=== PATIENT | female | born 1940 | race Caucasian/White ===

== ENCOUNTER 2018-12-25 06:27 | Day surgery (SDC) | payer OTHER ==
[~2018-12-25] VITALS: Ht 157.5 cm; Wt 78.9 kg
[~2018-12-25 06:27] MED LIST: CLOP75TA41 PO; LEVO112T4 PO; LOSA25TA38 PO; PANT40T PO
[2018-12-25] MEDS ORDERED: LIDOCAINE 2%HCL (LOCAL ANESTH.) INJ 20ML MDV ONE (07:27)
[2018-12-25] MEDS ORDERED: IODIXANOL 320MG/ML 100ML BTL IV ONE ×2 (07:27→08:10)
[2018-12-25] MEDS ORDERED: ANGIOMAX 250 MG VIAL IV ONE (07:42)
[2018-12-25] MEDS ORDERED: MIDAZOLAM HCL 1MG/1ML-2 ML VIAL ONE (07:43)
[2018-12-25] MEDS ORDERED: fentaNYL CITRATE 100 MCG/2 ML VL ONE (07:43)
[2018-12-25] MEDS ORDERED: SODIUM CHL 0.9% 0 ML ONE (07:43)
[2018-12-25] MEDS ORDERED: VERAPAMIL 2.5MG/ML INJ 2ML VIAL IV ONE (07:58)
[2018-12-25] MEDS ORDERED: HEPARIN SODIUM (PORCINE) 5000 UNITS/ML 1ML VIAL ONE (08:32)
[2018-12-25] MEDS ORDERED: ACETAMINOPHEN 500 MG TAB PO ONE (09:45)
== END 2018-12-25 11:20 | disposition home or self-care (01) ==
LOC: CATH 06:27
PROVIDERS: ATTEND Internal Medicine
DX: I25.10 Atherosclerotic heart disease of native coronary artery without angina pectoris (principal); I10 Essential (primary) hypertension; E78.5 Hyperlipidemia, unspecified; E78.00 Pure hypercholesterolemia, unspecified; Z87.891 Personal history of nicotine dependence; Z79.899 Other long term (current) drug therapy; Z95.818 Presence of other cardiac implants and grafts; Z88.8 Allergy status to other drugs, medicaments and biological substances; Z88.0 Allergy status to penicillin; Z98.84 Bariatric surgery status; Z88.2 Allergy status to sulfonamides; Z98.890 Other specified postprocedural states
CPT/HCPCS: 93454; 93571; C1769; C1894; J1644; J2250; J3010; J7030; Q9967; 99152

== ENCOUNTER 2024-11-06 14:13 | Inpatient (IN) | payer OTHER ==
[~2024-11-06] VITALS: Ht 157.5 cm; Wt 81.0 kg
[~2024-11-06 14:13] MED LIST changes: -CLOP75TA41 PO; +CLOP75TA70 PO; +LOSA-533 PO; -LOSA25TA38 PO
--- NOTE | 2024-11-06 15:10 | ED.PDOC ---
GI ASSESSMENT HPI Comments 84 y/o F, brought in by daughter, with PMHx of UTI, AFib, DM, and cancer presents to the ED for CC of diarrhea. Patient's daughter reports, patient has been having diarrhea [id number]. Patient's daughter endorses, patient was recently treated for a UTI on Monday (11/04/24) and is currently on Abx. Patient's daughter relays, patient has displayed increased disorientation since, beginning of symptoms. Patient denies nausea, vomiting, fever, or chills. No other symptoms or modifying factors present at this time. Chief Complaint: Diarrhea Time Seen by MD: 15:00 Reviewed Notes: Nurses Notes, Medications, Allergies Allergies: Coded Allergies: Cephalexin (Verified Allergy, Unknown, 12/21/18) Penicillins (Verified Allergy, Unknown, 12/21/18) Sulfa Antibiotics (Verified Allergy, Unknown, 12/21/18) Home Meds Reported Medications Levothyroxine Sodium (Levothyroxine Sodium) 112 Mcg Tab, 112 MCG PO QAM for 30 Days, MCG 12/21/18 Pantoprazole Sodium Sesquihydr (Pantoprazole Sodium) 40 Mg Tab, 40 MG PO DAILY, TAB 12/21/18 Losartan Potassium (Losartan Potassium) 25 Mg Tab, 25 MG PO DAILY for 30 Days, MG 12/21/18 Clopidogrel Bisulfate (CLOPIDOGREL) 75 Mg Tab, 75 MG PO MWF for 30 Days, MG 12/21/18 Information Source: Patient Mode of Arrival: Wheelchair Timing: Weeks Duration: Since onset Prehospital treatment: None Quality: None Vomitus: None Stool: Watery Severity: Moderate Recent: Antibiotics Recent Hx of: None Pain Location: None Modifying Factors: Nothing Associated sign and symptoms: Diarrhea Past Medical History PAST MEDICAL HISTORY: AFIB, Cancer, DM, Thyroid Surgical History: Hysterectomy Surgical History (Other): cataracts VALUE STREAM LEADER History: Denies all VALUE STREAM LEADER Hx Family History Family History: Unknown Social History Smoker: Non-Smoker Alcohol: Denies ETOH Use Drugs: Denies Drug Use Lives In: Home Constitutional: denies: chills, diaphoresis, fatigue, fever, malaise, sweats, weakness, others EENTM: denies: blurred vision, double vision, ear bleeding, ear discharge, ear drainage, ear pain, ear ringing, eye pain, eye redness, hearing loss, mouth pain, mouth swelling, nasal discharge, nose bleeding, nose congestion, nose pa in, photophobia, tearing, throat pain, throat swelling, voice changes, others Respiratory: denies: cough, hemoptysis, orthopnea, SOB at rest, shortness of breath, SOB with excertion, stridor, wheezing, others Cardiovascular: denies: chest pain, dizzy spells, diaphoresis, Dyspnea on exertion, edema, irregular heart beat, left arm pain, lightheadedness, palpitations, PND, syncope, others Gastrointestinal: reports: diarrhea; denies: abdomen distended, abdominal pain, blood streaked bowels, constipated, dysphagia, difficulty swallowing, hematemesis, melena, nausea, poor appetite, poor fluid intake, rectal bleeding, rectal pain, vomiting, others Genitourinary: denies: abnormal vagina bleeding, burning, dyspareunia, dysuria, flank pain, frequency, hematuria, incontinence, pain, , vagina discharge, urgency, others Neurological: denies: dizziness, fainting, headache, left sided numbness, left sided weakness, numbness, paresthesia, pre-existing deficit, right sided numbness, right sided weakness, seizure, speech problems, tingling, tremors, weakness, others Musculoskeletal: denies: back pain, gout, joint pain, joint swelling, muscle pain, muscle stiffness, neck pain, others Integumetry: denies: bruises, change in color, change in hair/nails, dryness, laceration, lesions, lumps, rash, wounds, others Allergic/Immunocompromised: denies: Difficulty Healing, Frequent Infections, Hives, Itching, others Hematologic/Lymphatic: denies: anemia, blood clots, easy bleeding, easy bruising, swollen glands, others Endocrine: denies: excessive hunger, excessive sweating, excessive thirst, excessive urination, flushing, intolerance to cold, intolerance to heat, unexpla ined weight gain, unexplained weight loss, others Psychiatric: denies: anxiety, bipolar disorder, depression, hopeless, panic disorder, schizophrenia, sleepless, suicidal, others All Other Systems: Reviewed and Negative Physical Exam General Appearance: Moderate Distress HEENT: Normal ENT Inspection, Pharynx Normal, TMs Normal Neck: Full Range of Motion, Non-Tender, Normal, Normal Inspection Respiratory: Chest Non-Tender, Lungs Clear, No Accessory Muscle Use, No Respiratory Distress, Normal Breath Sounds Cardiovascular: No Edema, No JVD, No Murmur, No Gallop, Normal Peripheral Pulses, Regular Rate/Rhythm Breast Exam: Deferred Gastrointestinal: No Organomegaly, No Pulsatile Mass, Normal Bowel Sounds, Soft, Suprapubic, Tenderness Genitalia: Deferred Pelvic: Deferred Rectal: Deferred Extremities: No calf tenderness, Normal capillary refill, No pedal edema Musculoskeletal : Apperance: Normal Neurologic: correctional officer sergeant II-XII nml as Tested, Motor Weakness, Normal Affect, No Sensory Deficits, Other (Confusion) Cerebellar Function: Normal Reflexes: Normal Skin: Dry, Pallor, Warm Lymphatic: No Adenopathy EKG EKG : Pulse Rate (adult): 71 [place]: Normal Cardiac Rhythm: NSR Block: None Hypertrophy: LVH ST: Normal Was a procedure done? Was a procedure done?: No GI differential Dx Differential Diagnosis: Gastritis/PUD, Gastroenteritis, UTI, Electrolyte Imbalance, Food Poisoning, Bacterial, Viral X-Ray, Labs, Meds, VS Vital Signs Date Time Temp Pulse Resp B/P (MAP) Pulse Ox O2 Delivery O2 Flow Rate FiO2 11/06/24 16:03 70 15 98 Room Air* 0 21 11/06/24 16:00 67 13 128/77 (94) 99 11/06/24 15:30 98.1 70 15 143/59 (87) 98 98.1 11/06/24 15:10 71 11/06/24 15:07 71 11/06/24 14:13 99.6 78 20 116/60 (78) 95 99.6 Lab Test 11/06/24 15:38 11/06/24 15:18 11/06/24 15:04 11/06/24 14:57 Range/Units POC Glucose 118 H 111 H 70-106 mg/dl White Blood Count 6.9 4.4-10.8 10^3/uL Red Blood Count 4.35 4.0-5.20 10^6/uL Hemoglobin 13.0 12.2-16.2 g/dL Hematocrit 38.1 36.0-46.0 % Mean Corpuscular Volume 87.5 80.0-100.0 fL Mean Corpuscular Hemoglobin 29.9 28.0-32.0 pg Mean Corpuscular Hemoglobin Concent 34.2 32.0-36.0 g/dL Red Cell Distribution Width 13.4 11.8-14.3 % Platelet Count 274 140-450 10^3/uL Mean Platelet Volume 6.9 6.9-10.8 fL Neutrophils (%) (Auto) 77.9 37.0-80.0 % Lymphocytes (%) (Auto) 8.1 L 10.0-50.0 % Monocytes (%) (Auto) 12.8 H 0.0-12.0 % Eosinophils (%) (Auto) 0.6 0.0-7.0 % Basophils (%) (Auto) 0.6 0.0-2.0 % Neutrophils # (Auto) 5.4 1.6-8.6 10 ^3/uL Lymphocytes # (Auto) 0.6 0.4-5.4 10 ^3/uL Monocytes # (Auto) 0.9 0-1.3 10 ^3/uL Eosinophils # (Auto) 0 0-0.8 10 ^3/uL Basophils # (Auto) 0 0-0.2 10 ^3/uL Nucleated Red Blood Cells 0.0 % Sodium Level 136 136-145 mmol/L Potassium Level 4.0 3.5-5.1 mmol/L Chloride Level 106 98-107 mmol/L Carbon Dioxide Level 22 20-31 mmol/L Anion Gap 8 5-15 Blood Urea Nitrogen 18 9-23 mg/dL Creatinine 1.21 H 0.550-1.02 mg/dL Glomerular Filtration Rate Calc 45 >90 mL/min BUN/Creatinine Ratio 14.9 10.0-20.0 Serum Glucose 108 H 74-106 mg/dL Lactic Acid Level 1.1 0.4-2.0 mmol/L Calcium Level 9.1 8.7-10.4 mg/dL Urine Color Yellow Yellow Urine Clarity Turbid H Clear Urine pH 5.5 5.0-9.0 Urine Specific [place] 1.026 1.001-1.035 Urine Protein 1+ H Negative Urine Ketones 1+ H Negative Urine Blood Negative Negative /uL Urine Nitrite Negative Negative Urine Bilirubin Negative Negative Urine Urobilinogen Normal Negative mg/dL Urine Leukocyte Esterase 2+ Negative /uL Urine RBC 5 0 - 4 /hpf Urine Microscopic WBC 45 H 0-5 /HPF Urine Squamous Epithelial Cells Few <5 /hpf Urine Bacteria None seen None Seen /hpf Urine Hyaline Casts Few 0 - 2 /lpf Urine Mucus Few None Seen Urine Yeast (Budding) Occasional None Seen /hpf Urine Glucose Normal Normal mg/dL Current Medications Medications (Trade) Dose Ordered Sig/Amira Route Start Time Stop Time Status Last Admin Sodium Chloride 500 ml @ 500 mls/hr Q1H ONCE IVB 11/06/24 15:00 11/06/24 15:59 DC 11/06/24 15:40 Ondansetron HCl (Zofran) 4 mg ONCE ONCE IV 11/06/24 16:45 11/06/24 16:46 DC 11/06/24 16:49 CXR: IMPRESSION: 1. Right upper lobe scarring. The CBC is within normal limits The chemistry panel is within normal limits The urine test is positive for UTI The patient's glucose is 111 At this time, the patient is being admitted to the hospitalist The patient was given Levaquin 500 mg IV piggyback The CAT scan of the abdomen and pelvis was done with noncontrast and is pending Images Reviewed?: Images reviewed and evaluated by me Time of 1ST Reevaluation: 15:30 Reevaluation 1ST: Unchanged Patient Education/Counseling: Diagnosis, Treatment, Prognosis Family Education/Counseling: No Family Present SEPSIS Sepsis Screen Date sepsis recognized/suspect: Nov 06, 2024 Time Sepsis recognized/suspect: 1429 Recent Procedure: No On Antibiotic Therapy: No Respiratory Rate >20: No Heart Rate >90: No Temp<36 C (96.8 F) or >38.3 C: No SBP <90 or MAP <65 mmHG: No New Acute Mental Status Change: No Is the patient on CPAP, BIPAP,: No Physician Orders Chest Portable (11/06/24 14:59) Human Resources Consultant (11/06/24 14:59) Pulse Oximetry (11/06/24 14:59) Blood Pressure (11/06/24 14:59) Heplock Iv (11/06/24 14:59) Blood Culture (11/06/24 14:59) Electrocardigram (11/06/24 14:59) Vital Signs Date Time Temp Pulse Resp B/P (MAP) Pulse Ox O2 Delivery O2 Flow Rate FiO2 11/06/24 16:03 70 15 98 Room Air* 0 21 11/06/24 16:00 67 13 128/77 (94) 99 11/06/24 15:30 98.1 70 15 143/59 (87) 98 98.1 11/06/24 15:10 71 11/06/24 15:07 71 11/06/24 14:13 99.6 78 20 116/60 (78) 95 99.6 Laboratory Tests Test 11/06/24 15:18 Lactic Acid Level 1.1 mmol/L (0.4-2.0) White Blood Count 6.9 10^3/uL (4.4-10.8) Medications Medications Dose Ordered Sig/Amira Route Start Time Stop Time Status Last Admin Dose Admin Ondansetron HCl 4 mg ONCE ONCE IV 11/06/24 16:45 11/06/24 16:46 DC 11/06/24 16:49 Sodium Chloride 500 ml @ 500 mls/hr Q1H ONCE IVB 11/06/24 15:00 11/06/24 15:59 DC 11/06/24 15:40 Departure 1 Departure Time of Disposition: 17:06 Impression: Primary Impression: Diarrhea Qualified Codes: R19.7 - Diarrhea, unspecified Additional Impressions: Dehydration Confusion UTI (urinary tract infection) Qualified Codes: N30.00 - Acute cystitis without hematuria Disposition: ADMITTED INPATIENT Admit to: Med Surg Condition: Fair Critical Care Note Critical Care Time?: No Stability Stability form required: Yes Unstable for transfer: ED Physician Assesment (Clinical assesment) Heart Score Heart Score: Heart Score Response (Comments) Value History N/A 0 EKG N/A 0 Age N/A 0 Risk Factors N/A 0 Troponin N/A 0 Total 0 I personally scribed for HANNAH LOONEY MD ([email or web address]) on 11/06/24 at 15:10. Electronically submitted by Rosalee Andres ([email or web address]). I personally scribed for HANNAH LOONEY MD ([email or web address]) on 11/06/24 at 15:15. Electronically submitted by Rosalee Andres ([email or web address]). I personally scribed for HANNAH LOONEY MD ([email or web address]) on 11/06/24 at 16:33. Electronically submitted by Rosalee Andres ([email or web address]). HANNAH LOONEY MD Nov 06, 2024 15:10
[2024-11-06 15:36] LABS: Basophils # (auto) 0 10 ^3/uL (0-0.2); Basophils % (auto) 0.6 % (0.0-2.0); Eosinophils # (auto) 0 10 ^3/uL (0-0.8); Eosinophils % (auto) 0.6 % (0.0-7.0); Hematocrit 38.1 % (36.0-46.0); Lymphocytes # (auto) 0.6 10 ^3/uL (0.4-5.4); Lymphocytes % (auto) 8.1 % (10.0-50.0); Mean Corpuscular Hemoglobin 29.9 pg (28.0-32.0); Mean Corpuscular Hgb Conc. 34.2 g/dL (32.0-36.0); Mean Corpuscular Volume 87.5 fL (80.0-100.0); Monocytes # (auto) 0.9 10 ^3/uL (0-1.3); Monocytes % (auto) 12.8 % (0.0-12.0); Neutrophils # (auto) 5.4 10 ^3/uL (1.6-8.6); Neutrophils % (auto) 77.9 % (37.0-80.0); Platelet Count (auto) 274 10^3/uL (140-450); Red Blood Cells 4.35 10^6/uL (4.0-5.20); Red Cell Distribution Width 13.4 % (11.8-14.3); White Blood Cell 6.9 10^3/uL (4.4-10.8)
[2024-11-06] MEDS: SODIUM CHLORIDE 0.9% 500 ML IVB ONE (15:40)
[2024-11-06 15:41] LABS: Chloride 106 mmol/L (98-107); Sodium 136 mmol/L (136-145)
[2024-11-06 15:42] LABS: Anion Gap 8 (5-15); Calcium 9.1 mg/dL (8.7-10.4); Carbon Dioxide 22 mmol/L (20-31)
[2024-11-06 15:47] LABS: BUN/Creatinine Ratio 14.9 (10.0-20.0); Blood Urea Nitrogen 18 mg/dL (9-23)
[2024-11-06 15:50] LABS: Glucose 108 mg/dL (74-106)
[2024-11-06 16:03] VITALS: PULSE 70; RESP 15; O2SAT 98
--- NOTE | 2024-11-06 16:13 | DVH ---
AP portable chest CLINICAL INDICATION: aloc FINDINGS: Heart size is borderline. Aorta is tortuous. No infiltrates or effusions. There is some s carring in the right upper lung zone. IMPRESSION: 1. Right upper lobe scarring.
[2024-11-06 16:16] LABS: Urine Bacteria None Seen /hpf (None Seen)
[2024-11-06 16:21] LABS: Urine Blood Negative /uL (Negative); Urine Budding Yeast OCCASIONAL /hpf (None Seen); Urine Clarity Turbid (Clear); Urine Color Yellow (Yellow); Urine Hyaline Cast FEW /lpf (0 - 2); Urine Mucus FEW (None Seen); Urine Protein, UAD 1+ (Negative); Urine Specific Gravity 1.026 (1.001-1.035); Urine Squamous Epithelial Cell FEW /hpf (<5); Urine Urobilinogen Normal (Negative); Urine WBC 45 /HPF (0-5); Urine pH 5.5 (5.0-9.0)
[2024-11-06] MEDS: ONDANSETRON HCL 4 MG/2 ML VIAL IV ONE (16:49)
[2024-11-06] MEDS ORDERED: MORPHINE SULFATE INJ 2 MG/ml SYRG IV PRN ×2 (17:15)
[2024-11-06] MEDS ORDERED: ONDANSETRON HCL 4 MG/2 ML VIAL IV PRN (17:15)
[2024-11-06] MEDS ORDERED: NITROGLYCERIN 0.4 MG SL TAB SL PRN (17:15)
[2024-11-06] MEDS: SODIUM CHLORIDE 0.9% 1,000 ML IV SCH (17:15)
[2024-11-06] MEDS ORDERED: HYDROcodone-ACET 5/325MG TAB PO PRN (17:15)
[2024-11-06] MEDS: levoFLOXacin 500MG 100 ML IV ONE (17:16)
--- NOTE | 2024-11-06 18:42 | DVH ---
Exam: CT CT AB PEL WO CON-NO ORAL OR IV History: pain Comparison Study: None TECHNIQUE: Multidetector CT of the abdomen was performed from lung bases to pubic symphysis. Imaging was performed without IV contrast. Axial, coronal and sagittal multiplanar reformats were obtained fr om the axial data set by the technologist. Radiation Dose Information: CT Dose: CTDI volume is 16.84 mGy. Dose-length product is 819.0 mGy*cm FINDINGS: Evaluation of solid organs is limited due to lack of intravenous contrast use. Findings: Lung Bases: No acute or significant lung base finding. Normal heart size. No pleural or pericardial effusion. Liver: The liver is normal in size. No focal lesions. Gallbladder and Biliary Tree: Unremarkable Spleen: Unremarkable Pancreas: The pancreas is grossly normal in appearance. Adrenal Glands: Unremarkable Kidneys: Bilateral punctate renal calculi may represent renal vascular or renal parenchymal calculi t here is no hydronephrosis. Bladder: Landis catheter in the bladder. Bowel: The stomach is grossly normal in appearance. Small bowel and colon are normal in caliber and d istribution. Mild stranding around the mid left colon no free air or abscess. Findings may represent non complicated append The appendix is not visualized; however, no secondary findings may represent non complicated diverticulitis. Ascites: Absent Lymphadenopathy: No mesenteric, retroperitoneal or periportal lymphadenopathy. Abdominal Wall and Mesentery: Unremarkable. Vasculature: The visualized abdominal aorta is normal in size and caliber. Evaluation of abdominal a nd pelvic vessels is limited due to lack of intravenous contrast. Pelvic Organs: Unremarkable Musculoskeletal: No aggressive focal bony lesions, acute fractures or dislocation. Soft tissues: Unremarkable IMPRESSION: 1. Stranding in the mesenteric fat around the mid left colon. There is no free air or free fluid. Fi ndings may represent uncomplicated diverticulitis in the mid left colon. Correlate clinically or area s of symptomatology. 2. Bilateral punctate renal calculi with no hydronephrosis. May represent renal vascular or renal par enchymal calculi. 3. Dextroscoliosis of the lumbar spine with bony spondylosis and degenerative disc changes. HS:Y Radiation optimization: All CT scans at this facility use at least one of these dose optimization truman hniques: automated exposure control mA and/or kV adjustment per patient size (includes targeted exam s where dose is matched to clinical indication) or iterative reconstruction.
[2024-11-06 21:30] VITALS: PULSE 64; RESP 17; O2SAT 94
[2024-11-06] MEDS: metroNIDAZOLE 500MG/100ML 100 ML IV SCH (22:08)
--- NOTE | 2024-11-07 00:27 | DVHHP2 ---
Admitting Diagnosis: Diarrhea rule out C Diff , Acute Cystitis History of Present Illness History Source: Patient Exam Limitations: No limitations HPI Mrs. Ale Elizabeth is an 84 yo female with a history of UTI, AFib, DM, and cancer who presents with a chief complaint of diarrhea. Patient's daughter reports, patient has been having diarrhea [id number]. Patient's daughter endorses, patient was recently treated for a UTI on Monday (11/04/24) and is currently on oral antibiotics. Patient reports she has been having some dizziness denies any syncope, headaches, blurry vision, nausea, vomiting, fevers, chills. Patient admitted for further evaluation. Home Meds Reported Medications Gabapentin (Gabapentin) 300 Mg Cap, 1 CAP PO BID 11/07/24 Cholestyramine Light (Cholestyramine Light) 4 Gm Pow, 1 PKT PO DAILY 11/07/24 Meclizine HCl (Meclizine Hydrochloride) 12.5 Mg Tab, 1 TAB PO BID 11/07/24 Linagliptin Base (TRADJENTA) 5 Mg Tab, 1 TAB PO DAILY once daily 11/07/24 Diltiazem HCl (Cartia Xt) 180 Mg Cap, 1 CAP PO DAILY once daily 11/07/24 Levothyroxine Sodium (Levothyroxine Sodium) 112 Mcg Tab, 125 MCG PO QAM for 30 Days, MCG once daily in AM 12/21/18 Pantoprazole Sodium Sesquihydr (Pantoprazole Sodium) 40 Mg Tab, 40 MG PO DAILY, TAB 12/21/18 Losartan Potassium (Losartan Potassium) 25 Mg Tab, 50 MG PO DAILY for 30 Days, MG once PO 12/21/18 Clopidogrel Bisulfate (CLOPIDOGREL) 75 Mg Tab, 75 MG PO MWF for 30 Days, MG 12/21/18 Past Medical History Cardiac: AFIB, HTN Pulmonary: No pertinent Hx Central Nervous System: No pertinent Hx GI: No pertinent Hx Hemotology/Oncology: No pertinent Hx Hepatobiliary: No pertinent Hx Psychiatric: No pertinent Hx Musculoskeletal: No pertinent Hx Rheumotologic: No pertinent Hx Infectious Disease: No peritnent Hx ENT: No pertinent Hx Renal/: UTI Endocrine: Hypothyroidism, NIDDM Dermatology: No pertinent Hx Past Surgical History: Hysterctomy Smoker: No Hx (Negative) Alocohol: None Drugs: None Lives with: With family Domestic Violence: Neg Review of Systems Gastrointestinal: Diarrhea All Other Systems Dizziness H&P Exam Vital Signs Vital Signs Date Time Temp Pulse Resp B/P (MAP) Pulse Ox O2 Delivery O2 Flow Rate FiO2 11/07/24 00:00 60 11/06/24 23:00 19 115/55 (75) 94 11/06/24 21:30 Room Air* 0 21 11/06/24 18:00 98.5 98.5 General Appeara: Well developed, Well nourished, Normal Appearance Head Exam: Normal inspection Neck Exam: Normal inspection, Non-tender, Normal alignment Eye Exam: bilateral eye Normal inspection, bilateral eye PERRL, bilateral eye EOMI Ear Exam: bilateral ear Auricle normal Nasal Exam: Normal inspection Mouth: Normal Inspection Pulmonary/Respiratory: Normal inspection, Normal breath sounds, Chest non- tender, Lungs clear Cardiovascular/Chest: Normal inspection, Regular rate, Normal Rhythm Peripheral Pulses: 2+ dorsalis pedis (R), 2+ dorsalis pedis (L), 2+ Radial (R), 2+ Radial (L) Abdominal Exam: Normal bowel sounds, Soft Rectal Exam: Deferred Back Exam: Normal inspection Pelvic Exam: Not done PRINTING TECHNICIAN Exam: Normal hearing, Normal speech, PERRL Motor/Sensory: Normal sensory function, Normal motor function Neuro/Mental St: Alert, Oriented Appearance: Appropriate appearance, Appropriate insight Eye contact/ Speech: Cooperative, Good eye contact, Normal speech Thoughts/Psych: Normal thought pattern Skin Exam: Normal inspection, Normal color, Warm/dry Labs/Xrays Labs Test 11/06/24 15:38 11/06/24 15:18 11/06/24 14:57 Range/Units POC Glucose 118 H 70-106 mg/dl White Blood Count 6.9 4.4-10.8 10^3/uL Red Blood Count 4.35 4.0-5.20 10^6/uL Hemoglobin 13.0 12.2-16.2 g/dL Hematocrit 38.1 36.0-46.0 % Mean Corpuscular Volume 87.5 80.0-100.0 fL Mean Corpuscular Hemoglobin 29.9 28.0-32.0 pg Mean Corpuscular Hemoglobin Concent 34.2 32.0-36.0 g/dL Red Cell Distribution Width 13.4 11.8-14.3 % Platelet Count 274 140-450 10^3/uL Mean Platelet Volume 6.9 6.9-10.8 fL Neutrophils (%) (Auto) 77.9 37.0-80.0 % Lymphocytes (%) (Auto) 8.1 L 10.0-50.0 % Monocytes (%) (Auto) 12.8 H 0.0-12.0 % Eosinophils (%) (Auto) 0.6 0.0-7.0 % Basophils (%) (Auto) 0.6 0.0-2.0 % Neutrophils # (Auto) 5.4 1.6-8.6 10 ^3/uL Lymphocytes # (Auto) 0.6 0.4-5.4 10 ^3/uL Monocytes # (Auto) 0.9 0-1.3 10 ^3/uL Eosinophils # (Auto) 0 0-0.8 10 ^3/uL Basophils # (Auto) 0 0-0.2 10 ^3/uL Nucleated Red Blood Cells 0.0 % Sodium Level 136 136-145 mmol/L Potassium Level 4.0 3.5-5.1 mmol/L Chloride Level 106 98-107 mmol/L Carbon Dioxide Level 22 20-31 mmol/L Anion Gap 8 5-15 Blood Urea Nitrogen 18 9-23 mg/dL Creatinine 1.21 H 0.550-1.02 mg/dL Glomerular Filtration Rate Calc 45 >90 mL/min BUN/Creatinine Ratio 14.9 10.0-20.0 Serum Glucose 108 H 74-106 mg/dL Lactic Acid Level 1.1 0.4-2.0 mmol/L Calcium Level 9.1 8.7-10.4 mg/dL Urine Color Yellow Yellow Urine Clarity Turbid H Clear Urine pH 5.5 5.0-9.0 Urine Specific [place] 1.026 1.001-1.035 Urine Protein 1+ H Negative Urine Ketones 1+ H Negative Urine Blood Negative Negative /uL Urine Nitrite Negative Negative Urine Bilirubin Negative Negative Urine Urobilinogen Normal Negative mg/dL Urine Leukocyte Esterase 2+ Negative /uL Urine RBC 5 0 - 4 /hpf Urine Microscopic WBC 45 H 0-5 /HPF Urine Squamous Epithelial Cells Few <5 /hpf Urine Bacteria None seen None Seen /hpf Urine Hyaline Casts Few 0 - 2 /lpf Urine Mucus Few None Seen Urine Yeast (Budding) Occasional None Seen /hpf Urine Glucose Normal Normal mg/dL Assessment/Plan Problem List: (1) Diarrhea (2) UTI (urinary tract infection) (3) Dehydration Plan This is an 84 yo female with known history of atrial fibrillation, hypertension, DM, Thyroid disease, cancer, hysterectomy who presents to the hospital with recurrent urinary tract infection, and diarrhea x 2 weeks. 1. Diarrhea r/o c diff 2. Acute Cystitis 3. chronic atrial fibrillation 4. Hypertension 5. DM type 2 6. chronic thyroid disease Plan: Admit Telemetry Cardiology consultation, 2D echocardiogram IV fluids IV antibiotics GI ppx DVT ppx PT evaluation C diff culture, stool WBC Reconcile home medications and continue Discussed all above with patient who verbalizes agreement and understanding of care plan. All questions were answered. Discussed with admitting/supervising MD. Plan discussed with: Patient, Other Code Visit Code Visit Total Time (mins): 45 Additional Comments Additional Comments Additional Comments 84-year-old female with a known history of diabetes mellitus type 2, hypertension, hypothyroidism, chronic AFib presented to the hospital with diarrhea after being treated for UTI recently with the p.o. antibiotics nitrofurantoin found to have 1. Diarrhea rule out C diff 2. Chronic AFib 3. Hypertension 4. Diabetes mellitus type 2 5. Hypothyroidism -check stool for C diff, we will start IV Flagyl for now, hold other IV antibiotics versus p.o. antibiotics -Accu-Cheks q.a.c. and h.s. low-dose sliding scale, patient's charts code is more than 2, qualify for anticoagulation we will get 2D echo cardiology consultation -therapeutic Lovenox per primary prevention of stroke, risks benefits and alternatives of therapeutic Lovenox including life-threatening bleeding disability explained to the patient in detail wound distended but we would like the understanding and agreeable to plan. HASMUKH AGUIAR Nov 07, 2024 00:27 JESSICA PICKARD MD Nov 07, 2024 17:07
[2024-11-07 06:00] LABS: Basophils # (auto) 0 10 ^3/uL (0-0.2); Basophils % (auto) 0.4 % (0.0-2.0); Eosinophils # (auto) 0.1 10 ^3/uL (0-0.8); Eosinophils % (auto) 1.7 % (0.0-7.0); Hematocrit 33.4 % (36.0-46.0); Hemoglobin 11.3 g/dL (12.2-16.2); Lymphocytes # (auto) 0.7 10 ^3/uL (0.4-5.4); Lymphocytes % (auto) 14.3 % (10.0-50.0); Mean Corpuscular Hemoglobin 29.5 pg (28.0-32.0); Mean Corpuscular Hgb Conc. 33.8 g/dL (32.0-36.0); Mean Corpuscular Volume 87.4 fL (80.0-100.0); Monocytes # (auto) 0.9 10 ^3/uL (0-1.3); Monocytes % (auto) 18.8 % (0.0-12.0); Neutrophils % (auto) 64.8 % (37.0-80.0); Nucleated Red Blood Cells % 0.1 %; Platelet Count (auto) 230 10^3/uL (140-450); Red Blood Cells 3.81 10^6/uL (4.0-5.20); Red Cell Distribution Width 13.4 % (11.8-14.3); White Blood Cell 4.7 10^3/uL (4.4-10.8)
[2024-11-07] MEDS: LEVOTHYROXINE SODIUM 112 MCG TAB PO SCH (06:36)
[2024-11-07 06:48] LABS: Alkaline Phosphatase 55 U/L (46-116); Anion Gap 8 (5-15); BUN/Creatinine Ratio 13.3 (10.0-20.0); Bilirubin, Total 0.4 mg/dL (0.2-1.0); Blood Urea Nitrogen 15 mg/dL (9-23); Carbon Dioxide 22 mmol/L (20-31); Glucose 84 mg/dL (74-106); Potassium 3.7 mmol/L (3.5-5.1); Sodium 139 mmol/L (136-145)
[2024-11-07 06:50] LABS: Alanine Aminotransferase < 9 U/L (7-40); Albumin 2.8 g/dL (3.2-4.8); Aspartate Aminotransferase < 8 U/L (<34); Calcium 8.2 mg/dL (8.7-10.4); Chloride 109 mmol/L (98-107); Total Protein 4.6 g/dL (5.7-8.2)
[2024-11-07 08:30] VITALS: BP 118/51; PULSE 67; RESP 16; TEMP 98.3; O2SAT 99
[2024-11-07] MEDS ORDERED: LINA5TAB PO (09:02)
[2024-11-07] MEDS ORDERED: DILT180C52 PO (09:02)
[2024-11-07] MEDS ORDERED: MECL12.595 PO (09:06)
[2024-11-07] MEDS ORDERED: CHOL4POW44 PO (09:06)
[2024-11-07] MEDS ORDERED: GABA-1250 PO (09:06)
[2024-11-07] MEDS: CLOPIDOGREL BISULFATE 75 MG TAB PO SCH (09:16)
[2024-11-07] MEDS: PANTOPRAZOLE 40 MG TAB PO SCH (09:16)
[2024-11-07] MEDS: LOSARTAN POTASSIUM 25 MG TAB PO SCH (09:16)
[2024-11-07] MEDS: ENOXAPARIN SOD 30 MG/0.3 ML SYRINGE SC SCH (09:17)
[2024-11-07] MEDS: ACETAMINOPHEN 325 MG TAB PO PRN (09:17)
[2024-11-07 12:30] VITALS: BP 143/46; PULSE 61; RESP 18; TEMP 99; O2SAT 98
--- NOTE | 2024-11-07 14:18 | ECG ---
[facility] Test Date: 2024-11-06 Test Time: 15:07:20 Pat Name: ONEL RUANO Department: ER Room: 0282T Gender: F Clam Dredger: GP : 1940 Requested By: HANNAH LOONEY Order Number: [id number] Reading MD: Jignesh Bustamante Measurements Intervals [place] Rate: 71 P: 33 CT: 130 QRS: -12 QRSD: 104 T: -20 QT: 462 QTc: 503 Interpretive Statements Sinus rhythm Sinus pause Left ventricular hypertrophy Probable inferior infarct, age indeterminate Anterolateral infarct, age indeterminate Prolonged QT interval Electronically Signed On 11-08-2024 21:17:35 PDT by Jignesh Bustamante Please click the below link to view image of tracing.
[2024-11-07] MEDS ORDERED: DEXTROSE (50%) 50ML SYRG IV PRN (14:45)
[2024-11-07 17:00] VITALS: BP 129/43; PULSE 73; RESP 24; TEMP 98.8; O2SAT 94
--- NOTE | 2024-11-07 17:05 | DVHSR ---
APPROVED REPORT EXAM: Two-dimensional and M-mode echocardiogram with Doppler and color Doppler. Blood Pressure: 117/45 mmHg INDICATION afib RISK FACTORS Height: 5'2, Weight: 160 DIMENSIONS LVDd4.0 (3.8-5.7cm)LA (2D)3.7 (1.9-4.0cm)Aortic Root3.2 (2.0-3.7cm) LVDs2.7 (2.5-4.0cm)LA (MM) (1.9-4.0cm)Aortic Cusp Exc1.5 (1.5-2.0cm) EF (%) 55.0 (55-70%)Rt. Atrium4.4 (1.9-4.0cm)Asc. Aorta cm IVSd1.1 (0.7-1.1cm)RV (D)4.6 (1.8-2.4cm) PWd1.0 (0.7-1.1cm) Mitral Valve MitralMitral Stenosis E wave0.94m/sMV Mean GR.mmHg A wave1.05m/sMV Peak GR.68mmHg E/A ratio0.92D MVAcm2 DECEL [id number] 1/2 Tim[place] Aortic Valve Aortic ValveAortic Stenosis V10.98m/Brayan Mean GR.6mmHg V21.45m/Brayan Peak GR.8mmHg LVOT Diameter2.0 (1.8-2.4cm)Doppler AVA2.12cm2 Tricuspid Valve TR Velocity2.83m/s [id number] Conclusion LVEF 60-65%, mild LVH MILD LA dilation RV mildly dilated, normal function Mild TR and mild pulmonary hypertesnion
[2024-11-07 20:00] VITALS: PULSE 82
[2024-11-07 21:00] VITALS: BP 122/58; PULSE 72; RESP 18; TEMP 98.7; O2SAT 97
[2024-11-07] MEDS: InsuLIN REG 1unit/0.01ml Soln (100units/ml) SC SCH (21:38)
[2024-11-07] MEDS: ACCU-CHEK COMFORT CURVE STRIP VI SCH (21:38)
[2024-11-07] MEDS: ENOXAPARIN SOD 80 MG/0.8ML SYRINGE SC SCH (21:42)
[2024-11-08] VITALS (9 sets, daily range): BP systolic 110–142; BP diastolic 40–64; PULSE 64–80; RESP 16–18; TEMP 98.3–99.2; O2SAT 96–98
--- NOTE | 2024-11-08 16:42 | DVHPN2 ---
Subjective Overnight events noted. Patient was stated diarrhea is better. Stools for C diff is still pending. Reviewed: Care Plan Changes from previous H/P or p: No Changes Objective Vitals Vital Signs Date Time Temp Pulse Resp B/P (MAP) Pulse Ox O2 Delivery O2 Flow Rate FiO2 11/08/24 12:54 74 11/08/24 12:37 98.6 16 142/43 (76) 98 98.6 11/08/24 08:00 Room Air* 0 21 Intake/Output Intake and Output 11/08/24 07:00 Intake Total 250 ml Output Total 1450 ml Balance -1200 ml Intake Oral 150 ml IV Total 100 ml Output Urine Total 1450 ml # Bowel Movements 4 Exam HEENT pupils are reactive Neck is supple CV is S1-S2 regular rate and rhythm Respiratory are clear GI posterior bowel sound Extremity no edema [place] no motor deficit Medications Current Medications Medications Dose Ordered Sig/Amira Route Start Time Stop Time Status Last Admin Dose Admin Sodium Chloride 1,000 ml @ 120 mls/hr Q8H20M IV 11/06/24 17:15 11/08/24 11:05 120 MLS/HR Acetaminophen/ Hydrocodone Bitart 1 tab Q4HP PRN PO 11/06/24 17:15 Ondansetron HCl 4 mg Q4HP PRN IV 11/06/24 17:15 Acetaminophen 650 mg Q6HP PRN PO 11/06/24 17:15 11/07/24 09:17 650 MG Morphine Sulfate 2 mg Q4HPRN PRN IV 11/06/24 17:15 Nitroglycerin 0.4 mg Q5MINP PRN SL 11/06/24 17:15 Morphine Sulfate 2 mg Q30M PRN IV 11/06/24 17:15 Clopidogrel Bisulfate 75 mg DAILY PO 11/07/24 10:00 11/08/24 10:33 75 MG Levothyroxine Sodium 112 mcg QAM PO 11/07/24 07:00 11/08/24 05:33 112 MCG Losartan Potassium 25 mg DAILY PO 11/07/24 10:00 11/08/24 10:32 25 MG Pantoprazole Sodium 40 mg DAILY PO 11/07/24 10:00 11/08/24 10:31 40 MG Metronidazole 100 ml @ 100 mls/hr Q8HR IV 11/06/24 22:00 11/08/24 05:33 100 MLS/HR Enoxaparin Sodium 70 mg Q12HR SC 11/07/24 22:00 11/08/24 10:40 70 MG Diagnostic Test (Pha) 1 strip ACHS 11/07/24 17:00 11/08/24 11:31 1 STRIP Insulin Human Regular ACHS SC 11/07/24 17:00 11/08/24 11:37 2 UNITS Dextrose 50 ml UD PRN IV 11/07/24 14:45 Laboratory Results Laboratory Tests 11/07/24 05:14 Urinalysis Test 11/06/24 14:57 Urine Color Yellow (Yellow) Urine Clarity Turbid (Clear) H Urine pH 5.5 (5.0-9.0) Urine Specific [place] 1.026 (1.001-1.035) Urine Protein 1+ (Negative) H Urine Ketones 1+ (Negative) H Urine Blood Negative /uL (Negative) Urine Nitrite Negative (Negative) Urine Bilirubin Negative (Negative) Urine Urobilinogen Normal mg/dL (Negative) Urine Leukocyte Esterase 2+ /uL (Negative) Urine RBC 5 /hpf (0 - 4) Urine Microscopic WBC 45 /HPF (0-5) H Urine Squamous Epithelial Cells Few /hpf (<5) Urine Bacteria None seen /hpf (None Seen) Urine Hyaline Casts Few /lpf (0 - 2) Urine Mucus Few (None Seen) Urine Yeast (Budding) Occasional /hpf (None Urine Glucose Normal mg/dL (Normal) Microbiology Microbiology Date/Time Source Procedure Growth Status 11/07/24 12:50 Stool Stool Culture - Preliminary Resulted 11/07/24 12:50 Stool Shiga Toxin I & II - Final Resulted 11/06/24 15:18 Blood Blood Culture - Preliminary NO GROWTH AFTER 48 HOURS OF INCUBATION. Resulted Assessment/Plan Assessment/Plan 84-year-old female with a known history of diabetes mellitus type 2, hypertension, hypothyroidism, chronic AFib presented to the hospital with diarrhea after being treated for UTI recently with the p.o. antibiotics nitrofurantoin found to have 1. Diarrhea rule out C diff 2. Chronic AFib 3. Hypertension 4. Diabetes mellitus type 2 5. Hypothyroidism -continue IV Flagyl, follow up on C diff Add Questran. Plan discussed with: Patient My Orders Orders - JESSICA PICKARD MD Procedure Category Date Status Time * Cardiology Consult CONS 11/07/24 Transmitted 17:03 Date of Service: Nov 08, 2024 Billing Provider: JESSICA PICKARD MD Common Visit Codes: NOT BILLABLE JESSICA PICKARD MD Nov 08, 2024 16:42
[2024-11-09] VITALS (10 sets, daily range): BP systolic 90–130; BP diastolic 40–60; PULSE 61–81; RESP 18–20; TEMP 97.8–98.6; O2SAT 96–99
[2024-11-09] MEDS: CHOLESTYRAMINE 4 GM POWDER PO ONE (14:51)
[2024-11-09] MEDS: VANCOMYCIN HCL 125 MG CAP PO SCH (15:59)
--- NOTE | 2024-11-09 17:53 | DVHPN2 ---
Subjective Overnight events noted. Patient was stated diarrhea is better. Stools for C diff is positive, started on vancomycin p.o.. Reviewed: Care Plan Changes from previous H/P or p: No Changes Objective Vitals Vital Signs Date Time Temp Pulse Resp B/P (MAP) Pulse Ox O2 Delivery O2 Flow Rate FiO2 11/09/24 16:56 97.8 61 20 122/40 (67) 99 97.8 11/09/24 08:00 Room Air* 0 21 Intake/Output Intake and Output 11/09/24 07:00 Intake Total 1160 ml Output Total 1040 ml Balance 120 ml Intake Oral 1060 ml IV Total 100 ml Output Urine Total 1040 ml # Bowel Movements 3 Exam HEENT pupils are reactive Neck is supple CV is S1-S2 regular rate and rhythm Respiratory are clear GI posterior bowel sound Extremity no edema [employer] no motor deficit Medications Current Medications Medications Dose Ordered Sig/Amira Route Start Time Stop Time Status Last Admin Dose Admin Sodium Chloride 1,000 ml @ 120 mls/hr Q8H20M IV 11/06/24 17:15 11/08/24 11:05 120 MLS/HR Acetaminophen/ Hydrocodone Bitart 1 tab Q4HP PRN PO 11/06/24 17:15 Ondansetron HCl 4 mg Q4HP PRN IV 11/06/24 17:15 Acetaminophen 650 mg Q6HP PRN PO 11/06/24 17:15 11/09/24 10:22 650 MG Morphine Sulfate 2 mg Q4HPRN PRN IV 11/06/24 17:15 Nitroglycerin 0.4 mg Q5MINP PRN SL 11/06/24 17:15 Morphine Sulfate 2 mg Q30M PRN IV 11/06/24 17:15 Clopidogrel Bisulfate 75 mg DAILY PO 11/07/24 10:00 11/09/24 10:23 75 MG Levothyroxine Sodium 112 mcg QAM PO 11/07/24 07:00 11/09/24 05:21 112 MCG Losartan Potassium 25 mg DAILY PO 11/07/24 10:00 11/09/24 10:22 25 MG Pantoprazole Sodium 40 mg DAILY PO 11/07/24 10:00 11/09/24 10:22 40 MG Metronidazole 100 ml @ 100 mls/hr Q8HR IV 11/06/24 22:00 11/09/24 13:31 100 MLS/HR Enoxaparin Sodium 70 mg Q12HR SC 11/07/24 22:00 11/08/24 21:11 70 MG Diagnostic Test (Pha) 1 strip ACHS 11/07/24 17:00 11/09/24 17:22 1 STRIP Insulin Human Regular ACHS SC 11/07/24 17:00 11/08/24 11:37 2 UNITS Dextrose 50 ml UD PRN IV 11/07/24 14:45 Cholestyramine Resin 4 gm Q12HR@ PO 11/09/24 23:00 Vancomycin HCl 125 mg QID PO 11/09/24 15:00 11/09/24 17:22 125 MG Laboratory Results Laboratory Tests 11/07/24 05:14 Urinalysis Test 11/06/24 14:57 Urine Color Yellow (Yellow) Urine Clarity Turbid (Clear) H Urine pH 5.5 (5.0-9.0) Urine Specific [place] 1.026 (1.001-1.035) Urine Protein 1+ (Negative) H Urine Ketones 1+ (Negative) H Urine Blood Negative /uL (Negative) Urine Nitrite Negative (Negative) Urine Bilirubin Negative (Negative) Urine Urobilinogen Normal mg/dL (Negative) Urine Leukocyte Esterase 2+ /uL (Negative) Urine RBC 5 /hpf (0 - 4) Urine Microscopic WBC 45 /HPF (0-5) H Urine Squamous Epithelial Cells Few /hpf (<5) Urine Bacteria None seen /hpf (None Seen) Urine Hyaline Casts Few /lpf (0 - 2) Urine Mucus Few (None Seen) Urine Yeast (Budding) Occasional /hpf (None Urine Glucose Normal mg/dL (Normal) Microbiology Microbiology Date/Time Source Procedure Growth Status 11/07/24 12:50 Stool Stool Culture - Final Complete 11/07/24 12:50 Stool Shiga Toxin I & II - Final Complete 11/06/24 15:18 Blood Blood Culture - Preliminary NO GROWTH AFTER 72 HOURS OF INCUBATION. Resulted Assessment/Plan Assessment/Plan 84-year-old female with a known history of diabetes mellitus type 2, hypertension, hypothyroidism, chronic AFib presented to the hospital with diarrhea after being treated for UTI recently with the p.o. antibiotics nitrofurantoin found to have 1.Diarrhea ruled in C diff 2. Chronic AFib 3. Hypertension 4. Diabetes mellitus type 2 5. Hypothyroidism -continue vancomycin p.o., Infectious Disease consultation. -DC therapeutic Lovenox, resume home dose of Plavix, DVT prophylaxis. Plan discussed with: Patient, Daughter My Orders Orders - JESSICA PICKARD MD Procedure Category Date Status Time Cholestyramine Powder PHA 11/09/24 In Process (Questran Powder) 23:00 Vancomycin Po PHA 11/09/24 In Process 15:00 * Infectious [place]- CONS 11/09/24 Transmitted Arturo [facility]cleod 14:51 Date of Service: Nov 09, 2024 Billing Provider: JESSICA PICKARD MD Common Visit Codes: NOT BILLABLE JESSICA PICKARD MD Nov 09, 2024 17:53
[2024-11-09] MEDS: CHOLESTYRAMINE 4 GM POWDER PO SCH (21:09)
--- NOTE | 2024-11-10 00:06 | DVHINCON2 ---
Date of service: Nov 09, 2024 Referring Physician Keith Reason for Consultation A-fib History of Present Illness This is an 84 year old female who was brought in by her daughter with a PMH of of UTI, AFib, DM, and cancer presents to the ED on 11/06 with complaints of diarrhea x 2weeks. Patient's daughter endorses, patient was recently treated for a UTI on Monday (11/04/24) and was prescribed antibiotics. Patient's daughter relays, patient has displayed increased disorientation since, beginning of symptoms. CT ABD PEL showed stranding in the mesenteric fat around the mid left colon. There is no free air or free fluid. Findings may represent uncomplicated diverticulitis in the mid left colon. Bilateral punctate renal calculi with no hydronephrosis. May represent renal vascular or renal parenchymal calculi. Dextroscoliosis of the lumbar spine with bony spondylosis and degenerative disc changes. EKG is NSR at 71. Chest x-ray showed right upper lobe scarring. Patient was admitted to the hospital. I am asked to consult on this patient. Family History: Diabetes mellitus G8 FATHER FH: kidney failure G8 FATHER Allergies: Coded Allergies: Cephalexin (Verified Allergy, Unknown, 12/21/18) Penicillins (Verified Allergy, Unknown, 12/21/18) Sulfa Antibiotics (Verified Allergy, Unknown, 12/21/18) Home Meds Reported Medications Gabapentin (Gabapentin) 300 Mg Cap, 1 CAP PO BID 11/07/24 Cholestyramine Light (Cholestyramine Light) 4 Gm Pow, 1 PKT PO DAILY 11/07/24 Meclizine HCl (Meclizine Hydrochloride) 12.5 Mg Tab, 1 TAB PO BID 11/07/24 Linagliptin Base (TRADJENTA) 5 Mg Tab, 1 TAB PO DAILY once daily 11/07/24 Diltiazem HCl (Cartia Xt) 180 Mg Cap, 1 CAP PO DAILY once daily 11/07/24 Levothyroxine Sodium (Levothyroxine Sodium) 112 Mcg Tab, 125 MCG PO QAM for 30 Days, MCG once daily in AM 12/21/18 Pantoprazole Sodium Sesquihydr (Pantoprazole Sodium) 40 Mg Tab, 40 MG PO DAILY, TAB 12/21/18 Losartan Potassium (Losartan Potassium) 25 Mg Tab, 50 MG PO DAILY for 30 Days, MG once PO 12/21/18 Clopidogrel Bisulfate (CLOPIDOGREL) 75 Mg Tab, 75 MG PO MWF for 30 Days, MG 12/21/18 Current Medications Current Medications Medications (Trade) Dose Ordered Sig/Amira Route PRN Reason Start Time Stop Time Status Last Admin Cholestyramine Resin (Questran Powder) 4 gm Q12HR@11,23 PO 11/09/24 23:00 Vancomycin HCl 125 mg QID PO 11/09/24 15:00 11/09/24 21:09 Enoxaparin Sodium (Lovenox) 40 mg DAILY SC 11/10/24 10:00 Review of Systems Constitutional: denies: chills, diaphoresis, fatigue, fever, malaise, sweats, weakness, others EENTM: denies: blurred vision, double vision, ear bleeding, ear discharge, ear drainage, ear pain, ear ringing, eye pain, eye redness, hearing loss, mouth pain, mouth swelling, nasal discharge, nose bleeding, nose congestion, nose pain, photophobia, tearing, throat pain, throat swelling, voice changes, others Respiratory: denies: cough, hemoptysis, orthopnea, SOB at rest, shortness of breath, SOB with excertion, stridor, wheezing, others Cardiovascular: denies: chest pain, dizzy spells, diaphoresis, Dyspnea on exertion, edema, irregular heart beat, left arm pain, lightheadedness, palpitations, PND, syncope, others Gastrointestinal: reports: diarrhea; denies: abdomen distended, abdominal pain, blood streaked bowels, constipated, dysphagia, difficulty swallowing, hematemesis, melena, nausea, poor appetite, poor fluid intake, rectal bleeding, rectal pain, vomiting, others Genitourinary: denies: abnormal vagina bleeding, burning, dyspareunia, dysuria, flank pain, frequency, hematuria, incontinence, pain, , vagina discharge, urgency, others Neurological: denies: dizziness, fainting, headache, left sided numbness, left sided weakness, numbness, paresthesia, pre-existing deficit, right sided numbness, right sided weakness, seizure, speech problems, tingling, tremors, weakness, others Musculoskeletal: denies: back pain, gout, joint pain, joint swelling, muscle pain, muscle stiffness, neck pain, others Integumetry: denies: bruises, change in color, change in hair/nails, dryness, laceration, lesions, lumps, rash, wounds, others Allergic/Immunocompromised: denies: Difficulty Healing, Frequent Infections, H bear, Itching, others Hematologic/Lymphatic: denies: anemia, blood clots, easy bleeding, easy bruising, swollen glands, others Endocrine: denies: excessive hunger, excessive sweating, excessive thirst, excessive urination, flushing, intolerance to cold, intolerance to heat, unexplained weight gain, unexplained weight loss, others Psychiatric: denies: anxiety, bipolar disorder, depression, hopeless, panic disorder, schizophrenia, sleepless, suicidal, others All Other Systems: Reviewed and Negative Vital Signs Vital Signs Date Time Temp Pulse Resp B/P (MAP) Pulse Ox O2 Delivery O2 Flow Rate FiO2 11/09/24 21:00 98.2 72 18 128/51 (76) 96 98.2 11/09/24 20:25 Room Air* 0 21 Physical Exam GENERAL: Alert and oriented x 3. No acute distress. EYES: PERRL, EOMI. Anicteric. HENT: Moist mucous membranes. LUNGS: Clear to auscultation bilaterally. CARDIOVASCULAR: Regular rate and rhythm. ABDOMEN: Soft, nontender and nondistended. EXTREMITIES: No edema. NEUROLOGIC: No focal neurological deficits. SKIN: Warm, dry. Labs/Diagnostic Data Labs Test 11/09/24 21:23 11/07/24 12:50 11/07/24 05:14 11/06/24 15:18 Range/Units POC Glucose 121 H 70-106 mg/dl Stool for White Cells None seen White Blood Count 4.7 # 4.4-10.8 10^3/uL Red Blood Count 3.81 L 4.0-5.20 10^6/uL Hemoglobin 11.3 L 12.2-16.2 g/dL Hematocrit 33.4 #L 36.0-46.0 % Mean Corpuscular Volume 87.4 80.0-100.0 fL Mean Corpuscular Hemoglobin 29.5 28.0-32.0 pg Mean Corpuscular Hemoglobin Concent 33.8 32.0-36.0 g/dL Red Cell Distribution Width 13.4 11.8-14.3 % Platelet Count 230 140-450 10^3/uL Mean Platelet Volume 6.9 6.9-10.8 fL Neutrophils (%) (Auto) 64.8 37.0-80.0 % Lymphocytes (%) (Auto) 14.3 10.0-50.0 % Monocytes (%) (Auto) 18.8 H 0.0-12.0 % Eosinophils (%) (Auto) 1.7 0.0-7.0 % Basophils (%) (Auto) 0.4 0.0-2.0 % Neutrophils # (Auto) 3.0 1.6-8.6 10 ^3/uL Lymphocytes # (Auto) 0.7 0.4-5.4 10 ^3/uL Monocytes # (Auto) 0.9 0-1.3 10 ^3/uL Eosinophils # (Auto) 0.1 0-0.8 10 ^3/uL Basophils # (Auto) 0 0-0.2 10 ^3/uL Nucleated Red Blood Cells 0.1 % Sodium Level 139 136-145 mmol/L Potassium Level 3.7 3.5-5.1 mmol/L Chloride Level 109 H 98-107 mmol/L Carbon Dioxide Level 22 20-31 mmol/L Anion Gap 8 5-15 Blood Urea Nitrogen 15 9-23 mg/dL Creatinine 1.13 H 0.550-1.02 mg/dL Glomerular Filtration Rate Calc 49 >90 mL/min BUN/Creatinine Ratio 13.3 10.0-20.0 Serum Glucose 84 74-106 mg/dL Hemoglobin A1c 5.8 H <5.7 % A1C Calcium Level 8.2 L 8.7-10.4 mg/dL Total Bilirubin 0.4 0.2-1.0 mg/dL Aspartate Amino Transferase (AST) < 8 <34 U/L Alanine Aminotransferase (ALT) < 9 7-40 U/L Alkaline Phosphatase 55 46-116 U/L Total Protein 4.6 L 5.7-8.2 g/dL Albumin 2.8 L 3.2-4.8 g/dL Lactic Acid Level 1.1 0.4-2.0 mmol/L Test 11/06/24 14:57 Range/Units Urine Color Yellow Yellow Urine Clarity Turbid H Clear Urine pH 5.5 5.0-9.0 Urine Specific [place] 1.026 1.001-1.035 Urine Protein 1+ H Negative Urine Ketones 1+ H Negative Urine Blood Negative Negative /uL Urine Nitrite Negative Negative Urine Bilirubin Negative Negative Urine Urobilinogen Normal Negative mg/dL Urine Leukocyte Esterase 2+ Negative /uL Urine RBC 5 0 - 4 /hpf Urine Microscopic WBC 45 H 0-5 /HPF Urine Squamous Epithelial Cells Few <5 /hpf Urine Bacteria None seen None Seen /hpf Urine Hyaline Casts Few 0 - 2 /lpf Urine Mucus Few None Seen Urine Yeast (Budding) Occasional None Seen /hpf Urine Glucose Normal Normal mg/dL Microbiology Date/Time Source Procedure Growth Status 11/07/24 12:50 Stool Stool Culture - Final Complete 11/07/24 12:50 Stool Shiga Toxin I & II - Final Complete 11/06/24 15:18 Blood Blood Culture - Preliminary NO GROWTH AFTER 72 HOURS OF INCUBATION. Resulted Assessment Diarrhea. Chronic A Fib. Hypertension. Diabetes mellitus type 2. Hypothyroidism. Plan/Recommendation I agree with your ongoing assessment and care of plan. Telemetry reviewed. Echocardiogram. Morphine and [place] for pain management. Plavix. DVT and GI prophylactics. Losartan. IV antibiotics as ordered. Additional plan as per the hospital course. A total of 45 minutes was spent reviewing the patient record, examining the patient, making a diagnostic and therapeutic plan, discussing this plan with medical personnel, following up on diagnostic studies and following the patient for clinical stability excluding any and all procedures. At least 50% of this time was spent in direct, [id number] contact. Plan discussed with: Patient POLI TAMEZ MD Nov 09, 2024 22:35
[2024-11-10 00:52] VITALS: BP 130/54; PULSE 77; RESP 18; TEMP 98.1; O2SAT 98
[2024-11-10 05:02] VITALS: BP 125/50; PULSE 66; RESP 16; TEMP 98.6; O2SAT 97
[2024-11-10 08:00] VITALS: PULSE 66
[2024-11-10 09:00] VITALS: BP 112/65; PULSE 94; RESP 17; TEMP 98.5; O2SAT 90
[2024-11-10] MEDS: ENOXAPARIN SOD 40 MG/0.4 ML SYRINGE SC SCH (10:00)
[2024-11-10 13:00] VITALS: BP 99/48; PULSE 63; RESP 17; TEMP 98.5; O2SAT 94
[2024-11-10 13:45] LABS: Basophils # (auto) 0 10 ^3/uL (0-0.2); Basophils % (auto) 0.7 % (0.0-2.0); Eosinophils # (auto) 0 10 ^3/uL (0-0.8); Eosinophils % (auto) 0.8 % (0.0-7.0); Hematocrit 36.1 % (36.0-46.0); Lymphocytes # (auto) 0.4 10 ^3/uL (0.4-5.4); Lymphocytes % (auto) 9.5 % (10.0-50.0); Mean Corpuscular Hemoglobin 29.3 pg (28.0-32.0); Mean Corpuscular Hgb Conc. 33.3 g/dL (32.0-36.0); Monocytes # (auto) 0.6 10 ^3/uL (0-1.3); Monocytes % (auto) 15.1 % (0.0-12.0); Neutrophils # (auto) 2.8 10 ^3/uL (1.6-8.6); Neutrophils % (auto) 73.9 % (37.0-80.0); Nucleated Red Blood Cells % 0.1 %; Platelet Count (auto) 236 10^3/uL (140-450); Red Cell Distribution Width 13.7 % (11.8-14.3); White Blood Cell 3.7 10^3/uL (4.4-10.8)
[2024-11-10 13:56] LABS: Anion Gap 9 (5-15); Carbon Dioxide 21 mmol/L (20-31); Chloride 106 mmol/L (98-107); Sodium 136 mmol/L (136-145)
[2024-11-10 14:01] LABS: Calcium 8.1 mg/dL (8.7-10.4); Potassium 3.4 mmol/L (3.5-5.1)
[2024-11-10 14:02] LABS: BUN/Creatinine Ratio 9.8 (10.0-20.0); Blood Urea Nitrogen 12 mg/dL (9-23); Glucose 162 mg/dL (74-106)
[2024-11-10 14:04] LABS: Phosphorus 2.6 mg/dL (2.4-5.1)
[2024-11-10 14:19] LABS: Magnesium 1.7 mg/dL (1.6-2.6)
[2024-11-10] MEDS ORDERED: CHL4PW PO (14:57)
[2024-11-10] MEDS ORDERED: VANC125C3 PO (14:59)
--- NOTE | 2024-11-10 15:01 | DVHDS2 ---
Discharge Summary Date of Admission Nov 06, 2024 at 17:02 Date of Discharge: Nov 10, 2024 Labs/Diagnostic Data: Laboratory Results Test 11/10/24 13:28 11/10/24 12:05 11/07/24 12:50 11/07/24 05:14 White Blood Count 3.7 10^3/uL (4.4-10.8) Red Blood Count 4.10 10^6/uL (4.0-5.20) Hemoglobin 12.0 g/dL (12.2-16.2) Hematocrit 36.1 % (36.0-46.0) Mean Corpuscular Volume 88.0 fL (80.0-100.0) Mean Corpuscular Hemoglobin 29.3 pg (28.0-32.0) Mean Corpuscular Hemoglobin Concent 33.3 g/dL (32.0-36.0) Red Cell Distribution Width 13.7 % (11.8-14.3) Platelet Count 236 10^3/uL (140-450) Mean Platelet Volume 6.9 fL (6.9-10.8) Neutrophils (%) (Auto) 73.9 % (37.0-80.0) Lymphocytes (%) (Auto) 9.5 % (10.0-50.0) Monocytes (%) (Auto) 15.1 % (0.0-12.0) Eosinophils (%) (Auto) 0.8 % (0.0-7.0) Basophils (%) (Auto) 0.7 % (0.0-2.0) Neutrophils # (Auto) 2.8 10 ^3/uL (1.6-8.6) Lymphocytes # (Auto) 0.4 10 ^3/uL (0.4-5.4) Monocytes # (Auto) 0.6 10 ^3/uL (0-1.3) Eosinophils # (Auto) 0 10 ^3/uL (0-0.8) Basophils # (Auto) 0 10 ^3/uL (0-0.2) Nucleated Red Blood Cells 0.1 % Sodium Level 136 mmol/L (136-145) Potassium Level 3.4 mmol/L (3.5-5.1) Chloride Level 106 mmol/L (98-107) Carbon Dioxide Level 21 mmol/L (20-31) Anion Gap 9 (5-15) Blood Urea Nitrogen 12 mg/dL (9-23) Creatinine 1.23 mg/dL (0.550-1.02) Glomerular Filtration Rate Calc 44 mL/min (>90) BUN/Creatinine Ratio 9.8 (10.0-20.0) Serum Glucose 162 mg/dL (74-106) Calcium Level 8.1 mg/dL (8.7-10.4) Phosphorus Level 2.6 mg/dL (2.4-5.1) Magnesium Level 1.7 mg/dL (1.6-2.6) POC Glucose 147 mg/dl (70-106) Stool for White Cells None seen Hemoglobin A1c 5.8 % A1C (<5.7) Total Bilirubin 0.4 mg/dL (0.2-1.0) Aspartate Amino Transferase (AST) < 8 U/L (<34) Alanine Aminotransferase (ALT) < 9 U/L (7-40) Alkaline Phosphatase 55 U/L (46-116) Total Protein 4.6 g/dL (5.7-8.2) Albumin 2.8 g/dL (3.2-4.8) Test 11/06/24 15:18 11/06/24 14:57 Lactic Acid Level 1.1 mmol/L (0.4-2.0) Urine Color Yellow (Yellow) Urine Clarity Turbid (Clear) Urine pH 5.5 (5.0-9.0) Urine Specific [place] 1.026 (1.001-1.035) Urine Protein 1+ (Negative) Urine Ketones 1+ (Negative) Urine Blood Negative /uL (Negative) Urine Nitrite Negative (Negative) Urine Bilirubin Negative (Negative) Urine Urobilinogen Normal mg/dL (Negative) Urine Leukocyte Esterase 2+ /uL (Negative) Urine RBC 5 /hpf (0 - 4) Urine Microscopic WBC 45 /HPF (0-5) Urine Squamous Epithelial Cells Few /hpf (<5) Urine Bacteria None seen /hpf (None Seen) Urine Hyaline Casts Few /lpf (0 - 2) Urine Mucus Few (None Seen) Urine Yeast (Budding) Occasional /hpf (None Urine Glucose Normal mg/dL (Normal) Other Laboratory Tests 11/10/24 13:28 Brief Hx & Hospital Course: 84-year-old female with a known history of diabetes mellitus type 2, hypertension, hypothyroidism, chronic AFib presented to the hospital with diarrhea after being treated for UTI recently with the p.o. antibiotics nitrofurantoin found to have diarrhea suspected secondary to C diff. Patient was initially started on IV Flagyl, C diff came back positive. Patient was started on vancomycin p.o.. Patient has known history of AFib she used to be in and case but does not want anymore as she is on Plavix. Cardiology was consulted as well who recommended the same. Patient's diarrhea is much better and she is stable to be discharged. Home health home safety evaluation will be provided. Patient needs to be on isolation until C diff treatment is finished. Condition at Discharge: Stable Final Diagnosis/Problems List 84-year-old female with a known history of diabetes mellitus type 2, hypertension, hypothyroidism, chronic AFib presented to the hospital with diarrhea after being treated for UTI recently with the p.o. antibiotics nitrofurantoin found to have 1.Diarrhea ruled in C diff 2. Paroxysmal AFib currently in normal sinus rhythm 3. Hypertension 4. Diabetes mellitus type 2 5. Hypothyroidism Discharge Disposition: Home with Health Services SNF Discharge Will this Physician continue t: No Discharge Instruct/Medications Diet: Cardiac 2g Na,low cholest Diet comment: 1999 ADA diet Activity: See Comment Activity comment: Contact isolation until the vancomycin p.o. course finishes. Follow Up/Referral: Follow up with the PCP in 1-2 weeks Follow up with the Cardiology Dr. Javier Pires in one week Medications: Vancomycin p.o., Questran as prescribed Discharge Statement: "Patient was advised to return to the ER or call 911 if any headaches, dizziness, shortness of breath, chest pain, abdominal pain, bleeding, fevers, or worsening of medical condition. Patient was counseled about treatment plan, medications, possible side effects, patientverbalized understanding. All questions were answered to the best of my ability. This discharge took greater then 30 minutes in planning, reviewing documentation, counseling the patient, and discussing with other team members." ASSESSMENT ASSESSMENT Assessment 84-year-old female with a known history of diabetes mellitus type 2, hypertension, hypothyroidism, chronic AFib presented to the hospital with diarrhea after being treated for UTI recently with the p.o. antibiotics nitrofurantoin found to have 1.Diarrhea ruled in C diff 2. Paroxysmal AFib currently in normal sinus rhythm 3. Hypertension 4. Diabetes mellitus type 2 5. Hypothyroidism Date of Service: Nov 10, 2024 Billing Provider: JESSICA PICKARD MD Common Visit Codes: NOT BILLABLE JESSICA PICKARD MD Nov 10, 2024 15:00
[2024-11-10] MEDS: POTASSIUM EFFERVESENT TAB 25 MEQ PO ONE (15:18)
[2024-11-10 16:11] VITALS: BP 102/38
--- NOTE | 2024-11-10 22:56 | DVHPN2 ---
Progress Note - Dictate Date Seen: Nov 10, 2024 Medical Necessity Reason Pt with a Central, PICC or Fol: No Subjective Patient was seen and evaluated in follow up. Echocardiogram shows an EF of 60- 65%. Patient denies any cardiac symptoms. Patient is cardiac stable for discharge. Telemetry reviewed. vital signs Vital Sign Date Time Temp Pulse Resp B/P (MAP) Pulse Ox O2 Delivery O2 Flow Rate FiO2 11/10/24 13:00 98.5 63 17 99/48 (65) 94 98.5 11/10/24 08:00 Room Air* 0 21 Total Intake and Output 11/09/24 11/09/24 11/10/24 15:00 23:00 07:00 Intake Total 100 ml 550 ml 400 ml Balance 100 ml 550 ml 400 ml medications Current Medications Medications Dose Ordered Sig/Amira Route Start Time Stop Time Status Last Admin Dose Admin Sodium Chloride 1,000 ml @ 120 mls/hr [id number] IV 11/06/24 17:15 11/10/24 04:49 120 MLS/HR Acetaminophen/ Hydrocodone Bitart 1 tab Q4HP PRN PO 11/06/24 17:15 Ondansetron HCl 4 mg Q4HP PRN IV 11/06/24 17:15 Acetaminophen 650 mg Q6HP PRN PO 11/06/24 17:15 11/09/24 10:22 650 MG Morphine Sulfate 2 mg Q4HPRN PRN IV 11/06/24 17:15 Nitroglycerin 0.4 mg Q5MINP PRN SL 11/06/24 17:15 Morphine Sulfate 2 mg Q30M PRN IV 11/06/24 17:15 Clopidogrel Bisulfate 75 mg DAILY PO 11/07/24 10:00 11/10/24 10:17 75 MG Levothyroxine Sodium 112 mcg QAM PO 11/07/24 07:00 11/10/24 05:17 112 MCG Losartan Potassium 25 mg DAILY PO 11/07/24 10:00 11/09/24 10:22 25 MG Pantoprazole Sodium 40 mg DAILY PO 11/07/24 10:00 11/10/24 10:17 40 MG Diagnostic Test (Pha) 1 strip ACHS 11/07/24 17:00 11/10/24 12:13 1 STRIP Insulin Human Regular ACHS SC 11/07/24 17:00 11/08/24 11:37 2 UNITS Dextrose 50 ml UD PRN IV 11/07/24 14:45 Cholestyramine Resin 4 gm Q12HR@11,23 PO 11/09/24 23:00 Vancomycin HCl 125 mg QID PO 11/09/24 15:00 11/10/24 12:13 125 MG Enoxaparin Sodium 40 mg DAILY SC 11/10/24 10:00 objective GENERAL: Alert and oriented x 3. No acute distress. EYES: PERRL, EOMI. Anicteric. HENT: Moist mucous membranes. LUNGS: Clear to auscultation bilaterally. CARDIOVASCULAR: Regular rate and rhythm. ABDOMEN: Soft, nontender and nondistended. EXTREMITIES: No edema. NEUROLOGIC: No focal neurological deficits. SKIN: Warm, dry. laboratory and microbiology Laboratory Tests 11/10/24 13:28 Test 11/10/24 13:28 Range/Units Serum Glucose 162 H 74-106 mg/dL Problem List Diarrhea. Chronic A Fib. Hypertension. Diabetes mellitus type 2. Hypothyroidism. Assessment/Plan Continued all current supportive medical care. Morphine and Frankewing for pain management. Plavix. DVT and GI prophylactics. Losartan. IV antibiotics as ordered. Additional plan as per the hospital course. Dietary Evaluation Review Comments: 1) Prebiotics and probiotics daily 2) Consider BRAT diet 3) Ensure enlive 240ml BID if PO intake <50% 4) Monitor I/O, PO intake, wt trend Expected Outcomes/Goals: GI symptoms to improve To meet >75% estimated needs Fu 3-5 days Plan discussed with: Patient POLI TAMEZ MD Nov 10, 2024 14:55
== END 2024-11-10 18:11 | disposition home health service (06) | DRG 372 ==
LOC: ER 14:13 → OVERFLOW 17:02 → TELE-WESTW 11-07 18:30
PROVIDERS: ADMIT Internal Medicine; ATTEND Internal Medicine
DX: A04.72 Enterocolitis due to Clostridium difficile, not specified as recurrent (principal); N30.00 Acute cystitis without hematuria; E11.9 Type 2 diabetes mellitus without complications; I10 Essential (primary) hypertension; E03.9 Hypothyroidism, unspecified; E86.0 Dehydration; I48.0 Paroxysmal atrial fibrillation; M47.9 Spondylosis, unspecified; M41.9 Scoliosis, unspecified; Z90.710 Acquired absence of both cervix and uterus; Z87.891 Personal history of nicotine dependence; Z87.440 Personal history of urinary (tract) infections; Z79.84 Long term (current) use of oral hypoglycemic drugs; Z85.89 Personal history of malignant neoplasm of other organs and systems; Z84.1 Family history of disorders of kidney and ureter; Z83.3 Family history of diabetes mellitus; Z88.0 Allergy status to penicillin; Z88.2 Allergy status to sulfonamides
CPT/HCPCS: 36415; 71045; 74176; 80048; 80053; 81001; 82962; 83036; 83605; 83735; 84100; 85025; 85048; 87040; 87045; 87427; 87493; 93005; 93306; 96361; 96374; 97110; 97116; 97163; 97530; G0378; J1815; J1956; J2405; J3490